=== PATIENT | female | born 2000 | race Caucasian/White ===

== ENCOUNTER 2021-01-20 08:55 | Outpatient (CLI) | payer OTHER ==
[~2021-01-20] VITALS: Ht 154.9 cm; Wt 48.5 kg
[~2021-01-20 08:55] MED LIST: COLACE 100MG C100 MG PO; FERROUS SULFAT325 M1 PO; IBUPROFEN600 MG PO; KEFLEX500 MG PO; LODINE CAP 300300 MG PO; NORCO 5-325 TA1 EACH PO; NORFLEX 100 MG100 MG PO
[2021-01-30] MEDS ORDERED: HYDROCODON-ACE1 EAC4 PO (15:21)
[2021-01-30] MEDS ORDERED: IBUPROFEN800 MG PO (15:21)
[2021-01-30] MEDS ORDERED: DOCUSATE SODIU100 MG PO (15:21)
== END 2021-01-20 13:11 | disposition home or self-care (01) ==
LOC: GENOP 08:55
DX: O26.893 Other specified pregnancy related conditions, third trimester (principal); R10.9 Unspecified abdominal pain; Z3A.37 37 weeks gestation of pregnancy
CPT/HCPCS: 81001; 83518; 96360; 96361; 96365; J0696

== ENCOUNTER 2021-01-30 06:11 | Inpatient (IN) | payer OTHER ==
[~2021-01-30] VITALS: Ht 154.9 cm; Wt 52.6 kg
[2021-01-30 08:21] LABS: HEMOGLOBIN 9.3 gm/dl (12.3-15.3); RED BLOOD COUNT 4.07 M/UL (4.00-5.10); WHITE BLOOD COUNT 9.4 K/UL (4.5-11.0)
[2021-01-30] MEDS ORDERED: PRENATAL VITAM1 EAC5 PO (08:22)
[2021-01-30] MEDS ORDERED: DOCUSATE SODIU100 MG PO (15:21)
[2021-01-30] MEDS ORDERED: IBUPROFEN800 MG PO (15:21)
[2021-01-30] MEDS ORDERED: HYDROCODON-ACE1 EAC4 PO (15:21)
[2021-01-31 06:20] LABS: HEMOGLOBIN 8.1 gm/dl (12.3-15.3)
== END 2021-01-31 17:10 | disposition home or self-care (01) | DRG 807 ==
LOC: GENOP 06:11 → OB 07:49
PROVIDERS: ADMIT Obstetrics & Gynecology
PROC: 10E0XZZ Delivery of Products of Conception, External Approach (ICD-10-PCS; principal; 2021-01-30)
PROC: 10907ZC Drainage of Amniotic Fluid, Therapeutic from Products of Conception, Via Natural or Artificial Opening (ICD-10-PCS; 2021-01-30)
DX: O99.824 Streptococcus B carrier state complicating childbirth (principal); Z37.0 Single live birth; Z3A.38 38 weeks gestation of pregnancy; O99.013 Anemia complicating pregnancy, third trimester; D64.9 Anemia, unspecified; Z20.822 Contact with and (suspected) exposure to COVID-19
CPT/HCPCS: 36415; 81001; 82800; 83518; 85014; 85018; 85025; 85461; 86850; 86900; 86901; 87635; J0595; J2590; J2790; J7120